=== PATIENT | female | born 1940 | race Caucasian/White ===

== ENCOUNTER 2018-12-06 09:02 | Inpatient (IN) ==
[2018-12-06] MEDS ORDERED: NS 1,000 ML IV ONE (09:15)
--- NOTE | 2018-12-06 09:24 | PROVIDER DOCUMENTATION ---
HPI-Neurological Disorder - General Chief Complaint: Altered Mental Status Stated Complaint: AMS Time Seen by Provider: 12/06/18 09:04 Source: patient, EMS Allergies/Adverse Reactions: Patient Allergies Allergy/AdvReac Type Severity Reaction Status Date / Time Penicillins Allergy Intermediate SWELLING Verified 07/29/15 15:40 aspirin AdvReac Severe GI BLEED Verified 07/29/15 15:40 morphine AdvReac Severe DECREASES Verified 07/29/15 15:40 BP Antihistamines - Alkylamine AdvReac Mild AGITAION Verified 07/29/15 15:40 levofloxacin [From Levaquin] AdvReac Mild HEADACHE Verified 07/29/15 15:40 meperidine HCl * AdvReac Mild HALLUCINATI Verified 07/29/15 15:40 [From Demerol] ONS quinine [Quinine] AdvReac Mild NAUSEA/VOMI Verified 07/29/15 15:40 TING Home Medications: Home Medication List Medication Instructions Recorded Confirmed Last Taken Type ATORVAstatin [Lipitor] 20 mg PO QHS 05/30/12 07/29/15 07/28/15 History Levothyroxine [Synthroid] 100 microgm PO DAILY 05/30/12 07/29/15 07/29/15 History Mirtazapine [Remeron] 30 mg PO QHS 05/30/12 07/29/15 07/28/15 History Venlafaxine E.r. [Effexor Xr] 75 mg PO BID 05/30/12 07/29/15 07/29/15 History Ziprasidone [Geodon] 20 mg PO DAILY 05/30/12 07/29/15 07/29/15 History Ziprasidone [Geodon] 40 mg PO QHS 05/30/12 07/29/15 07/28/15 History Estrogens, Conjugated [Premarin] 0.625 mg PO DAILY #0 01/29/13 07/29/15 07/29/15 Rx Gabapentin [Neurontin] 800 mg PO QHS 12/23/14 07/29/15 07/28/15 History Indapamide 1.25 mg PO DAILY 12/23/14 07/29/15 07/29/15 History Lorazepam [Ativan] 1 mg PO QHS 12/23/14 07/29/15 07/28/15 History Metoprolol Succinate [Toprol Xl] 200 mg PO DAILY 12/23/14 07/29/15 07/29/15 History Clindamycin [Cleocin] 150 mg PO Q6HR #30 capsule 07/29/15 Unknown Rx Furosemide [Lasix] 20 mg PO PRN PRN 07/29/15 07/29/15 Unknown History Omeprazole [Prilosec] 40 mg PO DAILY 07/29/15 07/29/15 07/29/15 History - History of Present Illness-Neuro Nature of Presenting Problem: EMS was called to the custodial [facility] to acute altered mental status. The nurse noted that the patient was not oriented and was acutely confused. By the time the EMS arrived she was back at baseline. Headache Location: denies: frontal, temporal, occipital, parietal, global, other Severity: reports: moderate Onset/Duration: reports: abrupt Timing: reports: resolved prior to arrival Context: reports: found unresponsive by custodial staff Approximate time patient was last seen normal?: 06:00 Character of Altered Mental Status: reports: disoriented, confused Any recent trauma/injury?: reports: none Character of Deficits: denies: new weakness, altered sensation, vision problem/glaucoma, impaired speech, impaired swallowing, decreased ability to stand, decreased ability to walk, falling New weakness or altered sensation location:: reports: none Cognitive Baseline: alert but confused Gait Baseline: unable to walk Associated Symptoms: denies: denies symptoms, short of breath, headache, decreased ability to walk or stand, fainting, dizziness, confusion, chest pain, neck/back pain, fatigue, fever/chills, insomnia, loss of consciousness, muscle spasms, nausea, numbness in legs/feet, paresthesia, diaphoretic, ringing in ears, seizures, sleepy, slurred speech, tingling in legs/feet, trouble walking, vomiting, vision changes, weakness, other Similar Symptoms Previously?: No Recently seen or treated by another doctor?: No Review of Systems - Adult - REVIEW OF SYSTEMS - ADULT Constitutional: reports: no symptoms reported Eyes: reports: no symptoms reported Ears, Nose, Mouth & Throat: reports: no symptoms reported Cardiovascular: reports: no symptoms reported Respiratory: reports: no symptoms reported Gastrointestinal: reports: no symptoms reported Genitourinary: reports: no symptoms reported Musculoskeletal: reports: joint pain Integumentary: reports: no symptoms reported Neurological: reports: see HPI Psychiatric: reports: anxiety, depression Endocrine: reports: no symptoms reported Hematologic/Lymphatic: reports: no symptoms reported Allergic/Immunologic: reports: no symptoms reported Past History - Adult - PAST MEDICAL HISTORY-ADULT Review of Records: reports: Old Records Reviewed, Nursing Assessment Review Major Childhood Illnesses: reports: denies history Cardiovascular: reports: CHF, HTN, hyperlipidemia Respiratory: reports: denies history Gastrointestinal: reports: GERD, ulcer Obstetrical/Gynecological: reports: denies history Genitourinary: reports: chronic UTI's Musculoskeletal: reports: arthritis, chronic pain, other (RA) Neurological: reports: other (neuropathy) Psychiatric: reports: depression Endocrine/Immune: reports: thyroid disorder Other Conditions: reports: denies history - PRIOR SURGERIES/PROCEDURES Surgical/Procedure History: reports: appendectomy, cholecystectomy, hysterectomy , tonsillectomy, other - IMMUNIZATION STATUS Childhood Immunizations: See Nurse Assessment Flu Vaccine: See Nurse Assessment - FAMILY HISTORY Family History: reviewed, not pertinent Physical Exam- Neurological - Physical Exam-Neuro Initial Vital Signs Reviewed: Yes General Appearance: appears well, alert, no apparent distress Eye Exam: bilateral eye: PERRL, EOMI HENMT: normocephalic/atraumatic, moist mucous membranes, normal ENT inspection, TMs normal, pharynx normal Head Injury: no evidence of injury Neck: non-tender, full range of motion, supple Respiratory: chest non-tender, lungs clear, normal breath sounds Cardiovascular: normal peripheral pulses, regular rate, rhythm, no edema Abdominal Exam: normal bowel sounds, non tender, soft, no organomegaly, no pulsatile mass Peripheral Pulses: radial (R): 1+, radial (L): 1+ Extremity: other (deformaties to hands from arthritis. left foot and ankle is deformed from previous surgery. 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 negative: normal gait Motor/Sensory: no motor deficit, no sensory deficit, no pronator drift Neurologic: code and test clerk II-XII nml as tested Integumentary: normal color, normal turgor Psych/Mental Status: normal mood/affect, normal thought content, other (Patient knows age and year. Not oriented to month or place.) - Glascow Coma Scale Best Eye Response: (4) open spontaneously Best Verbal Response: (5) oriented Best Motor Response: (6) obeys commands Progress - PLAN OF CARE/RESULTS Progress/Plan/Lab Results: Vital Signs - 8 hr 12/06/18 09:05 Temperature 97.5 F L Pulse Rate 70 Respiratory Rate 18 Blood Pressure 136/111 O2 Sat by Pulse Oximetry 100 Laboratory Results - last 24 hr 12/06/18 12/06/18 12/06/18 10:34 10:34 10:34 WBC 18.70 H RBC 3.59 L Hgb 11.3 L Hct 35.8 L MCV 99.7 H MCH 31.5 H MCHC 31.6 L RDW Std Deviation 12.6 Plt Count 275 MPV 9.3 Immature Gran % (Auto) 0.3 Neut % (Auto) 70.8 Lymph % (Auto) 16.0 L [place] % (Auto) 9.8 H Eos % (Auto) 2.9 Baso % (Auto) 0.2 Immature Gran # (Auto) 0.05 H Neut # (Auto) 13.25 H Lymph # (Auto) 2.99 [place] # (Auto) 1.84 H Eos # (Auto) 0.54 Baso # (Auto) 0.03 Sodium 141 Potassium 5.4 H Chloride 94 L Carbon Dioxide 33 Anion Gap 14 BUN 43 H Creatinine 2.4 H Estimated GFR/1.73 m2 19 BUN/Creatinine Ratio 18 Glucose 102 Calculated Osmolality 292 Calcium 11.9 H Total Bilirubin 0.28 AST 33 H ALT 12 Alkaline Phosphatase 74 Creatine Kinase 60 Troponin T 0.063 Total Protein 7.3 Albumin 4.1 Globulin 3.2 Albumin/Globulin Ratio 1.3 Urine Source Urine Color Urine Turbidity Urine pH Ur Specific [place] Urine Protein Ur Glucose (Stick) Ur Ketones (Stick) Urine Blood Urine Nitrite Urine Bilirubin Urobilinogen Dipstick Urine Leukocytes Urine WBC (Auto) Urine RBC (Auto) U Epithel Cells (Auto) Urine Bacteria (Auto) 12/06/18 10:55 WBC RBC Hgb Hct MCV MCH MCHC RDW Std Deviation Plt Count MPV Immature Gran % (Auto) Neut % (Auto) Lymph % (Auto) [place] % (Auto) Eos % (Auto) Baso % (Auto) Immature Gran # (Auto) Neut # (Auto) Lymph # (Auto) [place] # (Auto) Eos # (Auto) Baso # (Auto) Sodium Potassium Chloride Carbon Dioxide Anion Gap BUN Creatinine Estimated GFR/1.73 m2 BUN/Creatinine Ratio Glucose Calculated Osmolality Calcium Total Bilirubin AST ALT Alkaline Phosphatase Creatine Kinase Troponin T Total Protein Albumin Globulin Albumin/Globulin Ratio Urine Source CATH Urine Color YELLOW Urine Turbidity CLEAR Urine pH 7.0 Ur Specific [place] 1.011 Urine Protein TRACE A Ur Glucose (Stick) NEGATIVE Ur Ketones (Stick) NEGATIVE Urine Blood NEGATIVE Urine Nitrite NEGATIVE Urine Bilirubin NEGATIVE Urobilinogen Dipstick NORMAL Urine Leukocytes MODERATE A Urine WBC (Auto) 10-20 A Urine RBC (Auto) <10 U Epithel Cells (Auto) <10 Urine Bacteria (Auto) NEGATIVE Orders Category Date Time Status CHEST-2 VIEWS [RAD] Stat Exams 12/06/18 09:[address] HEAD W/O CONTRAST [CT] Stat Exams 12/06/18 09:14 Completed CBC WITH ELECTRONIC DIFF [HEME] Stat Lab 12/06/18 10:34 Completed CK PROFILE [SP CHEM] Stat Lab 12/06/18 10:34 Completed COMPREHENSIVE METABOLIC PANEL [CHEM] Stat Lab 12/06/18 10:34 Completed LACTATE, PLASMA [CHEM] Stat Lab 12/06/18 12:08 Uncollected TROPONIN T Stat Lab 12/06/18 10:34 Completed UA NIMS W/REFLEX CULT [URINALYSIS] Stat Lab 12/06/18 10:55 Completed 0.9% Sodium Chloride Inj [Ns] 1,000 ml Med 12/06/18 09:15 Discontinued IV 500 mls/hr Result Diagrams: 12/06/18 10:34 12/06/18 10:34 - CONSULTS/PCP/HOSPITALIST Notification #1 *Consult/PCP/Hospitalist*: Bhumi Time Discussed: 12:13 (Admit to Dr Chanel) Departure - Departure Date of Disposition Decision: 12/06/18 Time of Disposition Decision: 12:12 DIAGNOSIS: Pneumonia Disposition: ADMITTED INPATIENT 09 Certified Medical Emergency: Emergent Condition: Stable Referrals and Follow-Ups: Izabel Soto MD [Primary Care Provider] - - Critical Care Note This patient required my direct & personal management of CC.: No Attestation - Physician/ DELMAR Attestation Patient care was provided by Advanced Practice Provider:: No The physician spent face to face time with patient:: Yes Advanced Practice Provider documentation review:: Supervising physician onsite and consulted in the evaluation and care of this patient. The physician did have a face to face encounter with the patient.
--- NOTE | 2018-12-06 09:50 | Diag Imaging Result Doc PS360 ---
EXAM: CT HEAD W/O CONTRAST HISTORY: altered mental status TECHNIQUE: CT head without contrast COMPARISON: 01/07/2014 FINDINGS: No parenchymal hemorrhage. No epidural or subdural hematoma. No subarachnoid hemorrhage. There is atrophy with chronic microvascular ischemic changes. No mass identified on this noncontrasted exam. No hydrocephalus. No sinus opacification. IMPRESSION: 1.No hemorrhage 2.Atrophy with chronic microvascular ischemic changes This exam was performed using automated exposure control, adjustment of mA or kV according to patient size, and/or use of iterative reconstruction technique. Electronically signed by Huey Salter 12/06/2018 9:48 AM
--- NOTE | 2018-12-06 09:52 | Diag Imaging Result Doc PS360 ---
EXAM: CHEST-2 VIEWS HISTORY: altered mental status TECHNIQUE: Chest two views COMPARISON: 11/23/2015 FINDINGS: The lungs are well expanded. The left hemidiaphragm is elevated. The heart is not enlarged. The vessels are not distended. Questionable tiny left basilar infiltrate. No consolidation. No pleural effusions. IMPRESSION: Left basilar atelectasis versus a tiny infiltrate Electronically signed by Huey Salter 12/06/2018 9:50 AM
[2018-12-06 10:51] LABS: BASO# 0.03 X1000 (0.0-0.2); BASO% 0.2 % (0.0-0.8); EOS# 0.54 X1000 (0.0-0.7); EOS% 2.9 % (0.0-10.0); HEMATOCRIT 35.8 % (37.0-47.0); HEMOGLOBIN 11.3 g/dL (12.0-16.0); IMM GRAN# 0.05 X1000 (0.0-0.04); IMM GRAN% 0.3 % (0.0-0.5); LYMPH# 2.99 X1000 (1.2-3.4); MCH 31.5 PG (27-31); MCHC 31.6 g/dL (33-37); MCV 99.7 FL (81-99); MONO# 1.84 X1000 (0.11-0.59); MONO% 9.8 % (1.7-9.3); MPV 9.3 FL (7.4-10.4); NEUT# 13.25 X1000 (1.4-6.5); NEUT% 70.8 % (42.2-75.2); PLT 275 X1000 (130-400); RBC 3.59 XMIL (4.2-5.4); RDW 12.6 % (11.5-14.5)
[2018-12-06 11:09] LABS: ALB/GLOB RATIO 1.3; ALBUMIN 4.1 g/dL (3.5-5.0); CALCIUM 11.9 mg/dL (8.8-10.2); CREATININE 2.4 mg/dL (0.5-0.9); POTASSIUM 5.4 mmol/L (3.5-5.1); TOTAL BILIRUBIN 0.28 mg/dL (0.20-1.00); TOTAL PROTEIN 7.3 g/dL (6.3-8.3)
[2018-12-06 11:43] LABS: URINE SOURCE CATH
[2018-12-06 11:51] LABS: BILIRUBIN URINE NEGATIVE (NEGATIVE); BLOOD URINE NEGATIVE (NEGATIVE); COLOR YELLOW; GLUCOSE URINE NEGATIVE (NEGATIVE); KETONE URINE NEGATIVE (NEGATIVE); LEUKOCYTES URINE MODERATE (NEGATIVE); NITRITE URINE NEGATIVE (NEGATIVE); PROTEIN URINE TRACE mg/dL (NEGATIVE); SP GRAVITY URINE 1.011; TURBIDITY URINE CLEAR (CLEAR); UROBILINOGEN URINE NORMAL (NORMAL)
[2018-12-06 11:52] LABS: UR EPITHELIAL CELLS <10 /HPF (<10); URINE BACTERIA NEGATIVE /HPF; URINE RBC <10 /HPF (<10)
--- NOTE | 2018-12-06 12:12 | ED EKG INTERP ---
This chart was entered by Jacqueline Alejandre Scribe, acting as scribe for Rodney Leal DO. EKG Interpretation - EKG Time of EKG reading by physician:: 09:59 EKG Read and Signed by:: Rodney Leal EKG Interpretation (*Must complete 3 of following elements*): Abnormal (inferior infarct, age undetermined) Rate: 80 Rhythm: undetermined rhythm QRS: LVH ( with QRS widening) ST Wave: normal Attestation - Physician/ DELMAR Attestation Patient care was provided by Advanced Practice Provider:: No The physician spent face to face time with patient:: Yes Advanced Practice Provider documentation review:: Supervising physician onsite and consulted in the evaluation and care of this patient. The physician did have a face to face encounter with the patient. This chart was documented by the indicated scribe, (Jacqueline Alejandre Scribe) and accurately reflects the services I performed and decisions made by , Rodney Leal DO, as attested by the provider's signature.
[2018-12-06] MEDS ORDERED: TYLENOL PO PRN (13:29)
[2018-12-06] MEDS ORDERED: NS 1,000 ML IV SCH (13:29)
[2018-12-06] MEDS ORDERED: ANTIVERT PO PRN (15:36)
[2018-12-06] MEDS: DUONEB (A & A) INH SCH ×3 (16:42→23:05)
[2018-12-06] MEDS: NS 500 ML IV SCH (16:51)
[2018-12-06] MEDS: VELTASSA PO SCH (16:51)
[2018-12-06] MEDS: ZITHROMAX 500 MG/NS 500 MG/250 ML IVPB IV SCH (16:51)
[2018-12-06] MEDS: ROCEPHIN 1 GM in NS 50 ML IV SCH (16:51)
[2018-12-06] MEDS: NORCO-7.5 PO PRN (16:53)
[2018-12-06] MEDS ORDERED: NORCO-7.5 PO SCH (17:00)
--- NOTE | 2018-12-06 19:04 | HISTORY AND PHYSICAL ---
PRIMARY CARE PHYSICIAN: Izabel Soto MD CHIEF COMPLAINT: From shelter staff, increased confusion over the past several days that has progressively worsened. HISTORY OF PRESENTING ILLNESS: This is a 78-year-old female who presents to [facility] via EMS, who state that the shelter felt that she had increased acute altered mental status, was not oriented, acutely confused, but by the time EMS arrived, she was back at baseline. The patient states she has had confusion, and is alert and oriented at this time. When she arrived, her O2 saturation was 100% on 3 L. Her laboratory data showed a white blood cell count of 18.70. Her BUN was 43 with a creatinine of 2.4. Review of old records shows that her baseline is anywhere between 1.3 to 1.8. Her urinalysis showed moderate leukocytes only. Her chest x-ray showed left basilar atelectasis versus a tiny infiltrate. Head CT showed no hemorrhage, atrophy and chronic microvascular ischemic changes. She will be admitted to the medical floor for further evaluation and treatment. PAST MEDICAL HISTORY: CHF, hypertension, hyperlipidemia, GERD, chronic UTIs, arthritis, chronic kidney disease, rheumatoid arthritis, neuropathy, depression, hypothyroidism. PAST SURGICAL HISTORY: Appendectomy, cholecystectomy, hysterectomy, tonsillectomy. FAMILY HISTORY: Reviewed and noncontributory. SOCIAL HISTORY: She currently resides at a local shelter. Denies any tobacco, alcohol or illicit drug use. ALLERGIES: Penicillin, aspirin, morphine, antihistamines, Levaquin, meperidine and quinine. HOME MEDICATIONS: We will hold her Lasix 20 mg p.o. daily and Zofran 4 mg p.o. q.6 hours p.r.n. We will continue her acetaminophen extra-strength 500 mg 1 p.o. q.8 hours p.r.n.; Lipitor 20 mg p.o. at bedtime; vitamin B12, 1000 mcg p.o. daily; famotidine 10 mg p.o. b.i.d.; TriCor 48 mg 2 tablets p.o. at bedtime; Neurontin 600 mg p.o. at bedtime; [place] 10 one p.o. at bedtime and 7.5 p.o. t.i.d.; indapamide 1.25 mg p.o. daily; Synthroid 125 mcg p.o. daily; Ativan 1 mg 1-1/2 tablets p.o. at bedtime; Mylanta 15 mL p.o. at bedtime; meclizine 25 mg p.o. b.i.d.; melatonin 1 mg p.o. daily; metoprolol 200 mg p.o. daily; multivitamin p.o. daily; Veltassa 8.4 mg p.o. as directed, which was daily 6 days a week; Zantac 150 mg p.o. b.i.d.; senna-S 1 p.o. b.i.d.; Effexor XR 75 mg p.o. b.i.d.; ziprasidone 20 mg p.o. daily. LABORATORY DATA: White blood cell count of 18.70, hemoglobin 11.3, hematocrit 35.8, platelets 275,000. Sodium 141, potassium 5.4, chloride 94, CO2 is 33, BUN of 43, creatinine 2.4, glucose 102. Cardiac enzyme was negative. Urinalysis was negative except for moderate leukocyte. DIAGNOSTIC DATA: Chest x-ray showed left basilar atelectasis versus a tiny infiltrate. Head CT showed no hemorrhage, and atrophy with chronic microvascular ischemic changes. EKG showed an undetermined rhythm at 80, and I do not have the image of that at this time so we will go back and review that EKG. REVIEW OF SYSTEMS: She denied any fever, chills, blurred vision or dizziness. She was positive for confusion. Denied any chest pain, coughing. She has had some mild shortness of breath. Denied any abdominal pain, constipation, diarrhea or burning or hurting with urination. PHYSICAL EXAMINATION: VITAL SIGNS: On arrival she had a temperature of 97.5 degrees, pulse 70, respirations 18, blood pressure 136/111, saturating 100% on 3 L via nasal cannula. GENERAL: This is a 78-year-old female who is lying in the bed, answers questions appropriately at this time. HEENT: Normocephalic, atraumatic. Normal ENT inspection. Oropharynx and nares are clear. Eyes: Pupils are equal, round and reactive to light and accommodation. Extraocular movements are intact. NECK: Normal inspection, normal range of motion. LUNGS: Some scattered wheezes in the bases bilaterally. Equal lung expansion. Chest wall movement noted. HEART: Regular rate and rhythm. No murmurs, rubs or gallops. ABDOMEN: Soft, nontender, nondistended. Bowel sounds are present x4 quadrants. MUSCULOSKELETAL: She is noted to have some deformities of her hands from arthritis. Her left foot and ankle is deformed from a previous surgery and is noted to have 3 toes missing. NEUROLOGICAL: The cranial nerves 2-12 appear grossly intact. ASSESSMENT: 1. Altered mental status, now appears resolved: Contributers could include uremia due to WES, Pneumonia, use of sedative medications. 2. Left lower lobe pneumonia. 3. Leukocytosis. 4. Acute kidney injury on chronic kidney disease. PLAN: She is being admitted to the medical unit, placed on O2 per protocol, incentive spirometry. Telemetry, healthy-heart diet. Continue her home medications as previously identified. Place on DuoNeb q.4 hours, Rocephin 1 g IV q.24, azithromycin 500 IV q.24. Normal saline; we will do a 500 mL bag at 50 mL/h. She did receive a 500 mL bolus in the emergency room. We will recheck a CBC, BMP. Urine culture is pending. I will order a set of blood cultures. Further orders after seen by attending. Dictated by EDY Hernandez for Atif Chanel MD cc: EDY Hernandez MD Hiteshri S. Bhavsar, MD I agree with most components of history, physical, assessment and plan. A separate addendum has been dictated. [facility] MEDICAL CENTERZach
[2018-12-06 19:12] LABS: CALCIUM 10.9 mg/dL (8.8-10.2); CREATININE 2.4 mg/dL (0.5-0.9); POTASSIUM 4.2 mmol/L (3.5-5.1)
--- NOTE | 2018-12-06 20:15 | HISTORY AND PHYSICAL ---
ADDENDUM: I agree with most components of history, physical, assessment and plan. In brief, Ms. Vallejo is 78 years old lady with past medical history of essential hypertension, hyperlipidemia, obesity, rheumatoid arthritis, chronic kidney disease stage 3, anxiety, hypothyroidism, chronic pain, who was sent from jail because of altered mental status and acute confusion. According to ER records, by the time EMS arrived patient was very close to the baseline. In the emergency room she was found to have acute kidney injury on chronic kidney disease stage 3, leukocytosis, hypercalcemia and so hospitalist team was consulted for further management. I saw patient when 2 of her daughters are at bedside. Currently patient appears alert. The patient has been complaining of some chest discomfort and cough recently. She was able to make some sputum. However it was not collected. The patient has also been complaining of burning micturition recently. She denies any shortness of breath though. She denies known history of clotting disorder or coronary artery disease. Her initial troponin was slightly elevated to 0.06. We discussed about exam findings. We also discussed about possible pneumonia and urinary tract infection, hypercalcemia with medications contributing to altered mental status. VITALS: She has been afebrile with temperature of 97.9 degrees, pulse of 82 per minute, respiratory 20 blood pressure 150/96, saturating 99% on 2 L nasal cannula. PHYSICAL EXAMINATION: Morbidly obese not in any acute distress. Oral cavity is moist. She has decreased air entry with inspiratory crackles bilateral infrascapular region. Decreased air entry is more pronounced on left. She probably also has hiatal hernia. CARDIOVASCULAR: S1, S2 normal. No murmur, rub, or gallop. ABDOMEN: Obese, soft, nontender. No hepatosplenomegaly. She has mild bilateral lower extremity edema. She is alert and oriented x3. She is able to lift both upper extremities above ground level. She is not able to lift both lower extremities above ground level. However she is able to wiggle her toes. She has marked deformity of bilateral feet and what appears to be Dupuytren contracture of right hand. LABS: Suggestive of leukocytosis, normocytic anemia, normal platelet count, hyperkalemia, hypochloremia, acute kidney injury on chronic kidney disease stage 3, hypercalcemia, pyuria. Her urine and urine culture is in lab. Blood culture is pending. ASSESSMENT AND PLAN: 1. Acute encephalopathy in the setting of left lower lobe pneumonia, suspected acute cystitis, acute kidney injury and hypercalcemia. 2. Acute kidney injury on chronic kidney disease stage 3 with mild hyperkalemia and due to likely use of Lasix as per jail records. 3. Hypercalcemia likely because of volume depletion due to Lasix use. 4. Chronic pain, anxiety and depression with use of multiple sedative hypnotic medications including gabapentin, [place], benzodiazepines and ziprasidone. 5. Hypothyroidism. PLAN: 1. Start patient on intravenous ceftriaxone, azithromycin. Follow up with sputum culture, blood culture, urine culture results and urinary antigen. 2. Hold sedative hypnotic medications and add back as tolerated. 3. Follow up with serial BMP and avoid nephrotoxic medications. 4. Disposition. I will continue to monitor patient inside hospital as we monitor her mental status recovery as well as electrolyte recovery. Plan of care discussed with 2 of the daughters at bedside. All of the questions have been answered. cc: Atif Chanel MD
[2018-12-06] MEDS ORDERED: NEURONTIN PO SCH (21:00)
[2018-12-06] MEDS ORDERED: ATIVAN PO SCH (21:00)
[2018-12-06] MEDS ORDERED: ANTIVERT PO SCH (21:00)
[2018-12-06] MEDS ORDERED: NORCO-10 PO SCH (21:00)
[2018-12-06] MEDS: PEPCID PO SCH (22:09)
[2018-12-06] MEDS: TRICOR PO SCH (22:10)
[2018-12-06] MEDS: ZANTAC PO SCH (22:10)
[2018-12-06] MEDS: LIPITOR PO SCH (22:11)
[2018-12-06] MEDS: PERICOLACE PO SCH (22:11)
[2018-12-06] MEDS: EFFEXOR XR PO SCH (22:11)
[2018-12-06] MEDS: MELATONIN PO SCH (22:12)
[2018-12-06] MEDS: TYLENOL PO PRN (22:12)
[2018-12-06] MEDS: MAALOX PLUS LIQUID PO SCH (22:26)
[2018-12-07] MEDS: DUONEB (A & A) INH SCH ×6 (03:11→23:25)
[2018-12-07] MEDS: NS 500 ML IV SCH (04:27)
[2018-12-07] MEDS: NORCO-7.5 PO PRN (05:06)
[2018-12-07] MEDS: SYNTHROID PO SCH (06:09)
[2018-12-07 06:42] LABS: BASO# 0.02 X1000 (0.0-0.2); BASO% 0.2 % (0.0-0.8); EOS# 0.49 X1000 (0.0-0.7); HEMATOCRIT 31.8 % (37.0-47.0); HEMOGLOBIN 9.7 g/dL (12.0-16.0); IMM GRAN# 0.03 X1000 (0.0-0.04); IMM GRAN% 0.2 % (0.0-0.5); LYMPH# 1.77 X1000 (1.2-3.4); LYMPH% 14.6 % (20.5-51.1); MCH 30.4 PG (27-31); MCHC 30.5 g/dL (33-37); MCV 99.7 FL (81-99); MONO# 1.28 X1000 (0.11-0.59); MONO% 10.5 % (1.7-9.3); MPV 9.2 FL (7.4-10.4); NEUT# 8.56 X1000 (1.4-6.5); NEUT% 70.5 % (42.2-75.2); PLT 263 X1000 (130-400); RBC 3.19 XMIL (4.2-5.4); RDW 12.5 % (11.5-14.5); WBC 12.15 X1000 (4.8-10.8)
[2018-12-07 07:22] LABS: CALCIUM 10.5 mg/dL (8.8-10.2); CREATININE 2.2 mg/dL (0.5-0.9); POTASSIUM 3.5 mmol/L (3.5-5.1)
[2018-12-07] MEDS ORDERED: GEODON PO SCH (09:00)
[2018-12-07] MEDS ORDERED: LOZOL PO SCH (09:00)
[2018-12-07] MEDS: TOPROL XL PO SCH (09:01)
[2018-12-07] MEDS: PERICOLACE PO SCH ×2 (09:02→20:21)
[2018-12-07] MEDS: PEPCID PO SCH ×2 (09:02→20:22)
[2018-12-07] MEDS: ZANTAC PO SCH ×2 (09:02→20:21)
[2018-12-07] MEDS: EFFEXOR XR PO SCH ×2 (09:02→20:21)
[2018-12-07] MEDS: VITAMIN B-12 PO SCH (09:02)
[2018-12-07] MEDS: THERA M PLUS PO SCH (09:02)
--- NOTE | 2018-12-07 12:13 | PROGRESS NOTE ---
DATE: 12/07/2018 SUBJECTIVE: The patient has no current complaints. She states that she is feeling a little bit better, but she is still having some cough and congestion. Now says she feels like she cannot get the congestion up sometimes. OBJECTIVE: vital signs: Temperature 98 degrees, pulse 82, respiratory 18, BP 153/85. General: The patient is an obese female who is currently in no respiratory distress. Pleasant to talk with. HEENT: Normocephalic. Neck: Supple. Cardiovascular: Regular rate. Chest: No current wheezing. No crackles. Decreased but equal air movement. Abdomen: Soft, nondistended. Extremities: Moves all extremities. ASSESSMENT: 1. Left lower lobe pneumonia. 2. Metabolic encephalopathy, appears resolved, secondary to pneumonia. 3. Leukocytosis, improved. White count is 12. 4. Chronic renal failure with acute changes. Appears to be improving. PLAN: Overall, the patient is better. We will continue antibiotics, oxygen, and resuscitation. We will follow. cc: Ady Barron MD
[2018-12-07] MEDS: ROCEPHIN 1 GM in NS 50 ML IV SCH (13:18)
[2018-12-07] MEDS ORDERED: APRESOLINE PO ONE (17:20)
[2018-12-07] MEDS: ZITHROMAX 500 MG/NS 500 MG/250 ML IVPB IV SCH (18:49)
[2018-12-07] MEDS: LIPITOR PO SCH (20:21)
[2018-12-07] MEDS: TRICOR PO SCH (20:21)
[2018-12-07] MEDS: MELATONIN PO SCH (20:22)
[2018-12-07] MEDS: ATIVAN PO SCH (20:22)
[2018-12-07] MEDS: APRESOLINE PO SCH (20:22)
[2018-12-07] MEDS: MAALOX PLUS LIQUID PO SCH (20:31)
[2018-12-08] MEDS: NS 500 ML IV SCH ×3 (00:54→12:27)
[2018-12-08] MEDS: DUONEB (A & A) INH SCH ×6 (03:41→23:30)
[2018-12-08] MEDS: TYLENOL PO PRN (03:46)
[2018-12-08] MEDS: NORCO-7.5 PO PRN ×2 (05:12→20:53)
[2018-12-08] MEDS: SYNTHROID PO SCH (07:00)
--- NOTE | 2018-12-08 07:26 | EKG Report ---
Test Performed on : 12/07/2018 06:36:31 AM Test Reason : Follow up rhythm. ? Sinus with PAC Blood Pressure : / mmHG Vent. Rate : 076 BPM Atrial Rate : 076 BPM P-R Int : 198 ms QRS Dur : 116 ms QT Int : 430 ms P-R-T Axes : 060 -09 000 degrees QTc Int : 483 ms Normal sinus rhythm. Left ventricular hypertrophy with QRS widening Cannot rule out Inferior infarct (cited on or before 27-OCT-2013) Abnormal ECG When compared with ECG of 06-DEC-2018 09:59, (Unconfirmed) Previous ECG has undetermined rhythm, needs review Confirmed by Jag RAMOS, Juan Laura ([id number]) on 12/08/2018 5:05:53 PM
--- NOTE | 2018-12-08 07:46 | EKG Report ---
Test Performed on : 12/06/2018 09:59:15 AM Test Reason : ED. NO EKG ORDER FOR MUSE Blood Pressure : / mmHG Vent. Rate : 080 BPM Atrial Rate : 102 BPM P-R Int : 134 ms QRS Dur : 116 ms QT Int : 390 ms P-R-T Axes : 268 -13 032 degrees QTc Int : 449 ms Undetermined rhythm Left ventricular hypertrophy with QRS widening Inferior infarct (cited on or before 27-OCT-2013) Abnormal ECG When compared with ECG of 24-DEC-2014 05:43, Current undetermined rhythm precludes rhythm comparison, needs review Serial changes of Inferior infarct present Unconfirmed Result
[2018-12-08] MEDS: VITAMIN B-12 PO SCH (09:08)
[2018-12-08] MEDS: PERICOLACE PO SCH ×2 (09:08→20:48)
[2018-12-08] MEDS: THERA M PLUS PO SCH (09:09)
[2018-12-08] MEDS: ZANTAC PO SCH ×2 (09:09→20:48)
[2018-12-08] MEDS: PEPCID PO SCH ×2 (09:09→20:48)
[2018-12-08] MEDS: EFFEXOR XR PO SCH ×2 (09:09→20:48)
[2018-12-08] MEDS: APRESOLINE PO SCH ×2 (09:10→20:48)
[2018-12-08] MEDS: TOPROL XL PO SCH (09:10)
[2018-12-08] MEDS: ROCEPHIN 1 GM in NS 50 ML IV SCH (12:42)
[2018-12-08] MEDS: VELTASSA PO SCH (13:25)
[2018-12-08] MEDS ORDERED: NORCO-7.5 PO ONE (13:25)
--- NOTE | 2018-12-08 13:52 | PROGRESS NOTE ---
DATE: 12/08/2018 PHYSICAL EXAMINATION: Cardiovascular: Regular rate and rhythm. Pulmonary: Bilateral breath sounds. Clear to auscultation. GI: Soft, nontender, and nondistended. Bowel sounds were positive. LABORATORY DATA: White count is 12, hemoglobin and hematocrit 9 and 31; these are labs from yesterday. PROBLEM LIST: 1. Left lower lobe pneumonia. She appears to be improving. We will continue empiric antibiotics and follow. I am going to repeat her chest x-ray and her white count. 2. Hypertension. We will continue regular medications. Monitor. 3. Chronic renal failure appears to be overall stable. I am going to stop her fluids because I do not think we need to volume overload her. DISPOSITION: Anticipate discharge soon hopefully in the next 24 hours. I think she is in the long-term facility. cc: Chico Becker MD
[2018-12-08] MEDS: ZITHROMAX 500 MG/NS 500 MG/250 ML IVPB IV SCH (17:21)
[2018-12-08] MEDS: LIPITOR PO SCH (20:47)
[2018-12-08] MEDS: TRICOR PO SCH (20:48)
[2018-12-08] MEDS: MAALOX PLUS LIQUID PO SCH (20:49)
[2018-12-08] MEDS: ATIVAN PO SCH (20:52)
[2018-12-08] MEDS: MELATONIN PO SCH (20:57)
[2018-12-09] MEDS: DUONEB (A & A) INH SCH ×5 (03:05→19:59)
[2018-12-09] MEDS: NORCO-7.5 PO PRN ×3 (03:16→15:36)
[2018-12-09] MEDS: SYNTHROID PO SCH (06:11)
[2018-12-09 07:35] LABS: BASO# 0.02 X1000 (0.0-0.2); BASO% 0.2 % (0.0-0.8); EOS# 0.77 X1000 (0.0-0.7); EOS% 6.7 % (0.0-10.0); HEMATOCRIT 31.6 % (37.0-47.0); HEMOGLOBIN 9.8 g/dL (12.0-16.0); IMM GRAN# 0.04 X1000 (0.0-0.04); IMM GRAN% 0.4 % (0.0-0.5); LYMPH# 2.21 X1000 (1.2-3.4); LYMPH% 19.4 % (20.5-51.1); MCH 30.5 PG (27-31); MCV 98.4 FL (81-99); MONO# 1.38 X1000 (0.11-0.59); MONO% 12.1 % (1.7-9.3); MPV 9.4 FL (7.4-10.4); NEUT# 6.99 X1000 (1.4-6.5); NEUT% 61.2 % (42.2-75.2); PLT 329 X1000 (130-400); RBC 3.21 XMIL (4.2-5.4); RDW 12.4 % (11.5-14.5); WBC 11.41 X1000 (4.8-10.8)
--- NOTE | 2018-12-09 07:47 | Diag Imaging Result Doc PS360 ---
CHEST-PORTABLE - 12/09/2018 INDICATION: dyspnea COMPARISON: 12/06/2018 FINDINGS: Lung volumes are much lower. Stable infiltrate or atelectasis in the left lung base. Heart size remains top normal. No pneumothorax or large pleural effusion. IMPRESSION: Lower lung volumes. Otherwise no change from prior. Electronically signed by Boaz Harper 12/09/2018 7:44 AM
[2018-12-09 07:53] LABS: CREATININE 1.5 mg/dL (0.5-0.9); POTASSIUM 3.8 mmol/L (3.5-5.1)
[2018-12-09] MEDS: ZANTAC PO SCH (09:25)
[2018-12-09] MEDS: PERICOLACE PO SCH (09:25)
[2018-12-09] MEDS: PEPCID PO SCH (09:25)
[2018-12-09] MEDS: APRESOLINE PO SCH (09:25)
[2018-12-09] MEDS: VITAMIN B-12 PO SCH (09:26)
[2018-12-09] MEDS: THERA M PLUS PO SCH (09:26)
[2018-12-09] MEDS: EFFEXOR XR PO SCH (09:26)
[2018-12-09] MEDS: TOPROL XL PO SCH (09:26)
--- NOTE | 2018-12-09 13:17 | DISCHARGE SUMMARY ---
ADMISSION DATE: 12/06/2018 DISCHARGE DATE: 12/09/2018 DISCHARGE DIAGNOSES: 1. Left lower lobe pneumonia. 2. Hypoxic respiratory failure. 3. Acute on chronic renal failure. 4. Hypertension. 5. Gastroesophageal reflux disease. 6. Dementia. 7. Hyperkalemia. CONSULTATIONS: None. PROCEDURES: None. HOSPITAL COURSE: Briefly, this is a 78-year-old female presenting with increasing confusion. She is a long-term resident at [facility]. Her initial saturations were 100% on 3 L. I think she is continuously on oxygen. Her white count was 18. Her creatinine was 2.4. Chest x- ray was read as a left lower lobe pneumonia. Technically, I would say she was institutional acquired. She was placed on Rocephin and azithromycin which she improved on. Her encephalopathy improved. There was concern over cystitis. Her urine had some white blood cells and it grew out Enterococcus. She is allergic to penicillin, so I have to adjust her antibiotics, and she is allergic to Levaquin which causes headache. Her micro on the Klebsiella grew out on her sputum and it was pretty sensitive so for her Enterococcus, I think we will do Zyvox 600 q.12 h. and for her Klebsiella, we did Omnicef which should be good enough, but I think we may need to switch her to Keflex, Keflex and Zyvox, and see how she does with those 2 medications. In any case, the patient slowly improved. She still had a persistent mild leukocytosis which I think that resolved prior to discharge or nearly 11.4 on 12/09/2018. Her creatinine interestingly after hydration went to 1.54. As I can tell she has some baseline insufficiency. Her level is anywhere from 1.5 to 2 so that is not a large variance, but she was breathing comfortably. Her chest x-ray showed some low lung volumes but no major effusion. Saturations were 96% to 100% on 3 L which I think is her usual level, so she was felt stable for discharge. DISCHARGE MEDICATIONS: Gering, she takes 10 at night. Lipitor 20 at bedtime, Maalox 15 at bedtime, Neurontin 600 at bedtime, Tricor 96 at bedtime, Tylenol p.r.n., Pepcid 10 b.i.d., Antivert 25 b.i.d., Effexor 75 b.i.d., Geodon 20 daily. Gering she takes 1 tablet t.i.d. and that is a 7.5. I gave prescription for that. Indapamide 1.25 daily, Lasix 20 daily, melatonin 1 daily, senna 1 b.i.d., Synthroid 125 daily, multivitamin 1 daily, Toprol 200 daily XL, Veltassa 8.4 daily, vitamin B12 1 mcg daily, Zantac 150 b.i.d. Zofran 4 q.6 h. hours p.r.n. pain, Ativan 1 daily. Her DuoNebs will be q.6 h. for 7 days and then daily and then her Keflex will be 500 t.i.d. for 7 days and Zyvox 600 b.i.d. for 7 days. TIME SPENT: 32 minutes. cc: Chico Becker MD
[2018-12-09] MEDS: VELTASSA PO SCH (14:05)
[2018-12-09] MEDS: ROCEPHIN 1 GM in NS 50 ML IV SCH (14:05)
[2018-12-09 16:45] VITALS: BP 152/96
[2018-12-09] MEDS: ZITHROMAX 500 MG/NS 500 MG/250 ML IVPB IV SCH (17:44)
== END 2018-12-09 21:00 | DRG 871 ==
LOC: SUPCPDRO → ED 09:02 → SUATTDRO 12:59 → 3N 12:59
PROVIDERS: ATTEND Internal Medicine
CPT/HCPCS: 51701; 70450; 71010; 71020; 71045; 71046; 80048; 80053; 81001; 82550; 82948; 83605; 84484; 85025; 87040; 87070; 87077; 87088; 87186; 87205; 93005; 93010; 94640; 94761; 94799; 96360; 96361; 99285; A9270; J0456; J0696; J7030; J7040; P9612; XXXXX

== ENCOUNTER 2019-06-20 09:22 | Inpatient (IN) ==
--- NOTE | 2019-06-20 09:57 | Diag Imaging Result Doc PS360 ---
EXAM: CT HEAD W/O CONTRAST 06/20/2019 HISTORY: AMS TECHNIQUE: This exam was performed using automated exposure control, adjustment of mA or kV according to patient size, and/or use of iterative reconstruction technique. COMMENT: There are calcifications in the vertebral and internal carotid arteries. There are patchy lucencies in the periventricular white matter of both hemispheres. The patient's head is tilted and rotated to the left. Compared to 12/06/2018 the appearance the brain has not changed significantly. There is no evidence of mass effect, bleed, or abnormal extra-axial fluid collection. The visualized paranasal sinuses are clear. The calvarium is intact. IMPRESSION: Chronic ischemic changes. No evidence of acute intracranial disease. Electronically signed by Sunny Deras 06/20/2019 9:55 AM
[2019-06-20] MEDS ORDERED: D50W SYRINGE ONE (10:03)
[2019-06-20] MEDS ORDERED: NARCAN ONE (10:04)
--- NOTE | 2019-06-20 10:09 | PROVIDER DOCUMENTATION ---
HPI-Neurological Disorder - General Chief Complaint: Altered Mental Status Stated Complaint: AMS Time Seen by Provider: 06/20/19 09:51 Source: family, EMS Allergies/Adverse Reactions: Patient Allergies Allergy/AdvReac Type Severity Reaction Status Date / Time Penicillins Allergy Intermediate SWELLING Verified 06/20/19 11:02 doxycycline Allergy Unknown Verified 06/20/19 11:02 aspirin AdvReac Severe GI BLEED Verified 06/20/19 11:02 morphine AdvReac Severe DECREASES Verified 06/20/19 11:02 BP Antihistamines - Alkylamine AdvReac Mild AGITAION Verified 06/20/19 11:02 levofloxacin [From Levaquin] AdvReac Mild HEADACHE Verified 06/20/19 11:02 meperidine HCl * AdvReac Mild HALLUCINATI Verified 06/20/19 11:02 [From Demerol] ONS quinine [Quinine] AdvReac Mild NAUSEA/VOMI Verified 06/20/19 11:02 TING Home Medications: Home Medication List Medication Instructions Recorded Confirmed Last Taken Type ATORVAstatin [Lipitor] 20 mg PO QHS 05/30/12 06/20/19 06/19/19 History Levothyroxine [Synthroid] 125 microgm PO DAILY 05/30/12 06/20/19 06/19/19 History Venlafaxine E.r. [Effexor Xr] 75 mg PO BID 05/30/12 06/20/19 06/19/19 History Ziprasidone [Geodon] 20 mg PO DAILY 05/30/12 06/20/19 06/19/19 History Gabapentin [Neurontin] 600 mg PO QHS 12/23/14 06/20/19 06/19/19 History Indapamide 1.25 mg PO DAILY 12/23/14 06/20/19 06/19/19 History Metoprolol Succinate [Toprol Xl] 200 mg PO DAILY 12/23/14 06/20/19 06/19/19 Hist ory Furosemide [Lasix] 20 mg PO DAILY 07/29/15 06/20/19 06/19/19 History Acetaminophen [Acetaminophen Extra 1 tab PO Q8H PRN 12/06/18 06/20/19 Unknown History Strength] Cyanocobalamin (Vitamin B-12) 1,000 mcg PO DAILY 12/06/18 06/20/19 Unknown History [Vitamin B12] Famotidine [Acid Motion Picture Set Grip] 1 tab PO BID 12/06/18 06/20/19 Unknown History Fenofibrate [Tricor] 2 tab PO QHS 12/06/18 06/20/19 06/19/19 History Hydrocodone/Acetaminophen 1 tab PO TID 12/06/18 06/20/19 06/20/19 History [Hydrocodone-Acetamin 7.5-325] Mag Hydrox/Aluminum Hyd/Simeth [Mi 15 ml PO QHS 12/06/18 06/20/19 06/19/19 History Acid Suspension] Meclizine HCl [Antivert] 1 tab PO BID 12/06/18 06/20/19 06/19/19 History Multivitamin,Therapeutic [Thera] 1 tab PO DAILY 12/06/18 06/20/19 06/19/19 History Ondansetron [Zofran] 1 tab PO Q6H PRN 12/06/18 06/20/19 Unknown History Patiromer [Veltassa] 8.4 mg PO DIRECTED 12/06/18 06/20/19 06/19/19 History Ranitidine [Zantac] 1 tab PO BID 12/06/18 06/20/19 06/20/19 History Sennosides/Docusate Sodium 1 tab PO BID 12/06/18 06/20/19 06/19/19 History [Senna-S Laxative Tablet] Albuterol 2.5MG/Ipratrop 0.5MG 3 ml INH RTQ6H #100 neb 12/09/18 06/20/19 Unknown Rx [Duoneb] Cephalexin [Keflex] 500 mg PO TID #21 cap 12/09/18 06/20/19 Unknown Rx Hydrocodone/APAP 10 mg/325 mg 1 ea PO QHS #30 tab 12/09/18 06/20/19 06/20/19 Rx [[place]-10] Lorazepam [Ativan] 1 mg PO QHS #30 tab 12/09/18 06/20/19 06/19/19 Rx Polyethylene Glycol 3350 [Gavilax] 1 dose PO DIRECTED 06/20/19 06/20/19 Unknown History Talc/Cellulose/Chloroxylenol 1 dose TD BID 06/20/19 06/20/19 06/20/19 History [Zeasorb Powder] - History of Present Illness-Neuro Nature of Presenting Problem: Presents to the EC from [place] who states that she was found to have AMS. Patient's daughter just last week and her dose of ativan was increased recently to help her cope with the . She also takes chronic pain medications. They deny any sick symptoms. History is limited as patient is altered and cannot answer questions. Review of Systems - Adult - REVIEW OF SYSTEMS - ADULT ROS:: ROS per family Constitutional: reports: see HPI Eyes: reports: see HPI Ears, Nose, Mouth & Throat: reports: see HPI Cardiovascular: reports: see HPI Respiratory: reports: see HPI Gastrointestinal: reports: see HPI Genitourinary: reports: see HPI Musculoskeletal: reports: see HPI Integumentary: reports: see HPI Neurological: reports: see HPI Psychiatric: reports: see HPI Endocrine: reports: see HPI Hematologic/Lymphatic: reports: see HPI Allergic/Immunologic: reports: see HPI All Other Systems: Reviewed and Negative Past History - Adult - PAST MEDICAL HISTORY-ADULT Review of Records: reports: Old Records Reviewed Major Childhood Illnesses: reports: denies history Cardiovascular: reports: CHF, HTN, hyperlipidemia Respiratory: reports: denies history Gastrointestinal: reports: GERD, ulcer Obstetrical/Gynecological: reports: denies history Genitourinary: reports: chronic UTI's Musculoskeletal: reports: arthritis, chronic pain, other (RA) Neurological: reports: other (neuropathy) Psychiatric: reports: depression Endocrine/Immune: reports: thyroid disorder Other Conditions: reports: denies history - PRIOR SURGERIES/PROCEDURES Surgical/Procedure History: reports: appendectomy, cholecystectomy, hysterectomy , tonsillectomy, other - IMMUNIZATION STATUS Childhood Immunizations: See Nurse Assessment Flu Vaccine: See Nurse Assessment - FAMILY HISTORY Family History: reviewed, not pertinent Physical Exam- Neurological - Physical Exam-Neuro Initial Vital Signs Reviewed: Yes General Appearance: other (responds to some verbal and painful stimuli) Eye Exam: bilateral eye: normal inspection, PERRL, other (dilated) HENMT: normocephalic/atraumatic Head Injury: no evidence of injury Neck: supple, normal inspection Respiratory: chest non-tender, no respiratory distress, no accessory muscle use, decreased breath sounds, crackles (at bases) Cardiovascular: normal peripheral pulses, no murmur, tachycardia, irregularly irregular Abdominal Exam: normal bowel sounds, non tender, soft, other (obese) 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 Exam: other (unable to cooperate) Coordination/Gait: other (unable to cooperation for exam) Motor/Sensory: other (unable to cooperate for exam) Neurologic: other (no gross facial drooping or abnormalities) Psych/Mental Status: disoriented x 3 - Glascow Coma Scale Best Eye Response: (3) open to voice Best Verbal Response: (1) no verbal response Best Motor Response: (6) obeys commands Total Glascow Score: 10 Progress - PLAN OF CARE/RESULTS Progress/Plan/Lab Results: Vital Signs - 8 hr 06/20/19 10:42 06/20/19 10:43 06/20/19 11:00 Pulse Rate 114 H 116 H 112 H Respiratory Rate 19 34 H 21 Blood Pressure 73/53 O2 Sat by Pulse Oximetry 98 98 06/20/19 11:02 06/20/19 11:20 06/20/19 11:22 Pulse Rate 115 H 114 H 122 H Respiratory Rate 21 20 24 Blood Pressure 148/55 164/148 103/83 O2 Sat by Pulse Oximetry 98 94 L 96 06/20/19 11:30 06/20/19 11:32 06/20/19 11:48 Pulse Rate 123 H 113 H 128 H Respiratory Rate 19 24 18 Blood Pressure 110/86 66/52 O2 Sat by Pulse Oximetry 93 L 95 06/20/19 12:30 06/20/19 12:34 06/20/19 12:51 Pulse Rate 116 H 110 H 112 H Respiratory Rate 21 25 H 19 Blood Pressure 144/91 129/80 O2 Sat by Pulse Oximetry 98 99 96 06/20/19 13:00 06/20/19 13:02 06/20/19 13:07 Pulse Rate 122 H 114 H 104 H Respiratory Rate 19 21 16 Blood Pressure 61/42 O2 Sat by Pulse Oximetry 95 100 93 L 06/20/19 13:10 06/20/19 13:11 06/20/19 13:22 Pulse Rate 108 H 107 H 102 H Respiratory Rate 21 18 19 Blood Pressure 121/85 O2 Sat by Pulse Oximetry 97 94 L 95 06/20/19 13:26 06/20/19 13:30 06/20/19 13:35 Pulse Rate 113 H 112 H 119 H Respiratory Rate 20 19 19 Blood Pressure 103/68 109/83 O2 Sat by Pulse Oximetry 96 95 98 Laboratory Results - last 24 hr 06/20/19 06/20/19 06/20/19 09:51 10:20 10:31 WBC RBC Hgb Hct MCV MCH MCHC RDW Std Deviation Plt Count MPV Immature Gran % (Auto) Neut % (Auto) Lymph % (Auto) Preston % (Auto) Eos % (Auto) Baso % (Auto) Immature Gran # (Auto) Neut # (Auto) Lymph # (Auto) Preston # (Auto) Eos # (Auto) Baso # (Auto) Segmented Neutrophils Band Neutrophils Lymphocytes Monocytes Metamyelocytes PT INR PTT (Actin FS) Specimen Type ARTERIAL Sample Site R RADIAL pH 7.31 L pCO2 56 H* pO2 198 H HCO3 25.8 Base Excess 1.1 Oxyhemoglobin 97.3 ABG O2 Sat (Calculated) 15.2 ABG O2 Saturation 99.0 ABG Carboxyhemoglobin 1.10 ABG Methemoglobin 0.7 Juan Test YES A-a O2 Difference 445.0 Total Hemoglobin 10.8 L Lactate 7.60 H* Liter Flow 15.0 Blood Gas Modality NRB FiO2 % 100.0 Sodium Potassium Chloride Carbon Dioxide Anion Gap BUN Creatinine Estimated GFR/1.73 m2 BUN/Creatinine Ratio Glucose POC Glucose 63 L 213 H D Calculated Osmolality Calcium Magnesium Total Bilirubin AST ALT Alkaline Phosphatase Creatine Kinase Creatine Kinase Index CK-MB (CK-2) Troponin T Ytc-[id number]-Cxiexxsxhvo Pept Total Protein Albumin Globulin Albumin/Globulin Ratio Plasma Lactate TSH Free T4 Urine Source Urine Color Urine Turbidity Urine pH Ur Specific [place] Urine Protein Ur Glucose (Stick) Ur Ketones (Stick) Urine Blood Urine Nitrite Urine Bilirubin Urobilinogen Dipstick Urine Leukocytes Urine WBC (Auto) Urine RBC (Auto) U Epithel Cells (Auto) Urine Bacteria (Auto) Urine Crystals Small Round Cells Urine Casts Urine Yeast-like Cells Salicylates Urine Opiates Screen Ur Oxycodone Screen Ur Methadone, Qual Acetaminophen Ur Barbiturates Screen Ur Phencyclidine Scrn Ur Amphetamines Screen U Benzodiazepines Scrn Urine Cocaine Screen U Cannabinoids Screen Plasma/Serum Ethyl Alc 06/20/19 06/20/19 06/20/19 10:32 10:32 10:32 WBC 14.58 H RBC 3.65 L Hgb 11.1 L Hct 37.1 MCV 101.6 H MCH 30.4 MCHC 29.9 L RDW Std Deviation 15.8 H Plt Count 311 MPV 10.4 Immature Gran % (Auto) 1.9 H Neut % (Auto) 67.3 Lymph % (Auto) 18.4 L Preston % (Auto) 11.7 H Eos % (Auto) 0.1 Baso % (Auto) 0.6 Immature Gran # (Auto) 0.28 H Neut # (Auto) 9.81 H Lymph # (Auto) 2.69 Preston # (Auto) 1.70 H Eos # (Auto) 0.01 Baso # (Auto) 0.09 Segmented Neutrophils 66 Band Neutrophils 10 H Lymphocytes 18 L Monocytes 4 Metamyelocytes 2.0 PT INR PTT (Actin FS) Specimen Type Sample Site pH pCO2 pO2 HCO3 Base Excess Oxyhemoglobin ABG O2 Sat (Calculated) ABG O2 Saturation ABG Carboxyhemoglobin ABG Methemoglobin Juan Test A-a O2 Difference Total Hemoglobin Lactate Liter Flow Blood Gas Modality FiO2 % Sodium Potassium Chloride Carbon Dioxide Anion Gap BUN Creatinine Estimated GFR/1.73 m2 BUN/Creatinine Ratio Glucose POC Glucose Calculated Osmolality Calcium Magnesium Total Bilirubin AST ALT Alkaline Phosphatase Creatine Kinase Creatine Kinase Index CK-MB (CK-2) Troponin T Qhq-H-Tktxymdllio Pept Total Protein Albumin Globulin Albumin/Globulin Ratio Plasma Lactate 8.0 H* TSH 0.62 Free T4 Urine Source Urine Color Urine Turbidity Urine pH Ur Specific [place] Urine Protein Ur Glucose (Stick) Ur Ketones (Stick) Urine Blood Urine Nitrite Urine Bilirubin Urobilinogen Dipstick Urine Leukocytes Urine WBC (Auto) Urine RBC (Auto) U Epithel Cells (Auto) Urine Bacteria (Auto) Urine Crystals Small Round Cells Urine Casts Urine Yeast-like Cells Salicylates Urine Opiates Screen Ur Oxycodone Screen Ur Methadone, Qual Acetaminophen Ur Barbiturates Screen Ur Phencyclidine Scrn Ur Amphetamines Screen U Benzodiazepines Scrn Urine Cocaine Screen U Cannabinoids Screen Plasma/Serum Ethyl Alc 06/20/19 06/20/19 06/20/19 10:32 10:32 10:32 WBC RBC Hgb Hct MCV MCH MCHC RDW Std Deviation Plt Count MPV Immature Gran % (Auto) Neut % (Auto) Lymph % (Auto) Preston % (Auto) Eos % (Auto) Baso % (Auto) Immature Gran # (Auto) Neut # (Auto) Lymph # (Auto) Preston # (Auto) Eos # (Auto) Baso # (Auto) Segmented Neutrophils Band Neutrophils Lymphocytes Monocytes Metamyelocytes PT 25.7 H INR 2.28 PTT (Actin FS) 39.6 Specimen Type Sample Site pH pCO2 pO2 HCO3 Base Excess Oxyhemoglobin ABG O2 Sat (Calculated) ABG O2 Saturation ABG Carboxyhemoglobin ABG Methemoglobin Juan Test A-a O2 Difference Total Hemoglobin Lactate Liter Flow Blood Gas Modality FiO2 % Sodium 135 L Potassium 5.9 H Chloride 86 L Carbon Dioxide 27 Anion Gap 22 BUN 58 H Creatinine 3.4 H Estimated GFR/1.73 m2 13 BUN/Creatinine Ratio 17 Glucose 215 H POC Glucose Calculated Osmolality 293 Calcium 8.9 Magnesium 3.6 H Total Bilirubin 1.04 H AST > 7000 H ALT 2012 H Alkaline Phosphatase 88 Creatine Kinase 269 H Creatine Kinase Index 0.8 CK-MB (CK-2) 2.13 Troponin T 0.111 H Ftq-B-Lwsfvdroeyb Pept Total Protein 6.5 Albumin 2.9 L Globulin 3.6 Albumin/Globulin Ratio 0.8 Plasma Lactate TSH Free T4 Urine Source Urine Color Urine Turbidity Urine pH Ur Specific [place] Urine Protein Ur Glucose (Stick) Ur Ketones (Stick) Urine Blood Urine Nitrite Urine Bilirubin Urobilinogen Dipstick Urine Leukocytes Urine WBC (Auto) Urine RBC (Auto) U Epithel Cells (Auto) Urine Bacteria (Auto) Urine Crystals Small Round Cells Urine Casts Urine Yeast-like Cells Salicylates < 3.00 L Urine Opiates Screen Ur Oxycodone Screen Ur Methadone, Qual Acetaminophen 16.7 Ur Barbiturates Screen Ur Phencyclidine Scrn Ur Amphetamines Screen U Benzodiazepines Scrn Urine Cocaine Screen U Cannabinoids Screen Plasma/Serum Ethyl Alc 06/20/19 06/20/19 06/20/19 10:32 10:32 10:32 WBC RBC Hgb Hct MCV MCH MCHC RDW Std Deviation Plt Count MPV Immature Gran % (Auto) Neut % (Auto) Lymph % (Auto) Preston % (Auto) Eos % (Auto) Baso % (Auto) Immature Gran # (Auto) Neut # (Auto) Lymph # (Auto) Preston # (Auto) Eos # (Auto) Baso # (Auto) Segmented Neutrophils Band Neutrophils Lymphocytes Monocytes Metamyelocytes PT INR PTT (Actin FS) Specimen Type Sample Site pH pCO2 pO2 HCO3 Base Excess Oxyhemoglobin ABG O2 Sat (Calculated) ABG O2 Saturation ABG Carboxyhemoglobin ABG Methemoglobin Juan Test A-a O2 Difference Total Hemoglobin Lactate Liter Flow Blood Gas Modality FiO2 % Sodium Potassium Chloride Carbon Dioxide Anion Gap BUN Creatinine Estimated GFR/1.73 m2 BUN/Creatinine Ratio Glucose POC Glucose Calculated Osmolality Calcium Magnesium Total Bilirubin AST ALT Alkaline Phosphatase Creatine Kinase Creatine Kinase Index CK-MB (CK-2) Troponin T Ukw-E-Piomfbcadnf Pept > 32616 H Total Protein Albumin Globulin Albumin/Globulin Ratio Plasma Lactate TSH Free T4 1.90 H Urine Source Urine Color Urine Turbidity Urine pH Ur Specific [place] Urine Protein Ur Glucose (Stick) Ur Ketones (Stick) Urine Blood Urine Nitrite Urine Bilirubin Urobilinogen Dipstick Urine Leukocytes Urine WBC (Auto) Urine RBC (Auto) U Epithel Cells (Auto) Urine Bacteria (Auto) Urine Crystals Small Round Cells Urine Casts Urine Yeast-like Cells Salicylates Urine Opiates Screen Ur Oxycodone Screen Ur Methadone, Qual Acetaminophen Ur Barbiturates Screen Ur Phencyclidine Scrn Ur Amphetamines Screen U Benzodiazepines Scrn Urine Cocaine Screen U Cannabinoids Screen Plasma/Serum Ethyl Alc 06/20/19 06/20/19 06/20/19 10:39 10:39 13:30 WBC RBC Hgb Hct MCV MCH MCHC RDW Std Deviation Plt Count MPV Immature Gran % (Auto) Neut % (Auto) Lymph % (Auto) [place] % (Auto) Eos % (Auto) Baso % (Auto) Immature Gran # (Auto) Neut # (Auto) Lymph # (Auto) [place] # (Auto) Eos # (Auto) Baso # (Auto) Segmented Neutrophils Band Neutrophils Lymphocytes Monocytes Metamyelocytes PT INR PTT (Actin FS) Specimen Type Sample Site pH pCO2 pO2 HCO3 Base Excess Oxyhemoglobin ABG O2 Sat (Calculated) ABG O2 Saturation ABG Carboxyhemoglobin ABG Methemoglobin Juan Test A-a O2 Difference Total Hemoglobin Lactate Liter Flow Blood Gas Modality FiO2 % Sodium Potassium Chloride Carbon Dioxide Anion Gap BUN Creatinine Estimated GFR/1.73 m2 BUN/Creatinine Ratio Glucose POC Glucose Calculated Osmolality Calcium Magnesium Total Bilirubin AST ALT Alkaline Phosphatase Creatine Kinase Creatine Kinase Index CK-MB (CK-2) Troponin T Gws-S-Rqlcgswctlu Pept Total Protein Albumin Globulin Albumin/Globulin Ratio Plasma Lactate 6.5 H* TSH Free T4 Urine Source CATH Urine Color ORANGE Urine Turbidity TURBID Urine pH 5.5 Ur Specific [place] 1.016 Urine Protein 100 A Ur Glucose (Stick) NEGATIVE Ur Ketones (Stick) NEGATIVE Urine Blood SMALL A Urine Nitrite NEGATIVE Urine Bilirubin NEGATIVE Urobilinogen Dipstick NORMAL Urine Leukocytes LARGE A Urine WBC (Auto) TNTC A Urine RBC (Auto) TNTC A U Epithel Cells (Auto) >10 A Urine Bacteria (Auto) 1+ Urine Crystals Not Reportable Small Round Cells Not Reportable Urine Casts NONE SEEN Urine Yeast-like Cells NONE SEEN Salicylates Urine Opiates Screen PRESUMPTIVE POSITIVE A Ur Oxycodone Screen NONE DETECTED Ur Methadone, Qual NONE DETECTED Acetaminophen Ur Barbiturates Screen NONE DETECTED Ur Phencyclidine Scrn NONE DETECTED Ur Amphetamines Screen NONE DETECTED U Benzodiazepines Scrn NONE DETECTED Urine Cocaine Screen NONE DETECTED U Cannabinoids Screen NONE DETECTED Plasma/Serum Ethyl Alc 06/20/19 13:38 WBC RBC Hgb Hct MCV MCH MCHC RDW Std Deviation Plt Count MPV Immature Gran % (Auto) Neut % (Auto) Lymph % (Auto) [place] % (Auto) Eos % (Auto) Baso % (Auto) Immature Gran # (Auto) Neut # (Auto) Lymph # (Auto) [place] # (Auto) Eos # (Auto) Baso # (Auto) Segmented Neutrophils Band Neutrophils Lymphocytes Monocytes Metamyelocytes PT INR PTT (Actin FS) Specimen Type Sample Site pH pCO2 pO2 HCO3 Base Excess Oxyhemoglobin ABG O2 Sat (Calculated) ABG O2 Saturation ABG Carboxyhemoglobin ABG Methemoglobin Juan Test A-a O2 Difference Total Hemoglobin Lactate Liter Flow Blood Gas Modality FiO2 % Sodium Potassium Chloride Carbon Dioxide Anion Gap BUN Creatinine Estimated GFR/1.73 m2 BUN/Creatinine Ratio Glucose POC Glucose 142 H Calculated Osmolality Calcium Magnesium Total Bilirubin AST ALT Alkaline Phosphatase Creatine Kinase Creatine Kinase Index CK-MB (CK-2) Troponin T Fgk-F-Afbbvdvrpwh Pept Total Protein Albumin Globulin Albumin/Globulin Ratio Plasma Lactate TSH Free T4 Urine Source Urine Color Urine Turbidity Urine pH Ur Specific [place] Urine Protein Ur Glucose (Stick) Ur Ketones (Stick) Urine Blood Urine Nitrite Urine Bilirubin Urobilinogen Dipstick Urine Leukocytes Urine WBC (Auto) Urine RBC (Auto) U Epithel Cells (Auto) Urine Bacteria (Auto) Urine Crystals Small Round Cells Urine Casts Urine Yeast-like Cells Salicylates Urine Opiates Screen Ur Oxycodone Screen Ur Methadone, Qual Acetaminophen Ur Barbiturates Screen Ur Phencyclidine Scrn Ur Amphetamines Screen U Benzodiazepines Scrn Urine Cocaine Screen U Cannabinoids Screen Plasma/Serum Ethyl Alc Orders Category Date Time Status Admit - [facility] Routine AdmDCTranf 06/20/19 13:17 Active Activity - Up with Assistance ORDERED Care 06/20/19 13:17 Active Apply Mechanical Device [QM] ORDERED Care 06/20/19 13:17 Active Cardiac Monitoring DIRECTED Care 06/20/19 10:07 Active FSBS/Accucheck Result AC + HS Care 06/20/19 13:17 Active IV Insertion ORDERED Care 06/20/19 10:07 Completed Notify MD of + Sepsis Screen NOW Care 06/20/19 10:07 Active Notify Physician As Ordered Care 06/20/19 10:07 Active Nursing- MD Consult Request ROUTINE Care 06/20/19 13:07 Active MD [Physician/Provider Consults] Routine Cons 06/20/19 13:06 Ordered Clear Liquid Diet Diet 06/20/19 13:18 Active CHEST-1 VIEW [RAD] Stat Exams 06/20/19 10:[address] HEAD W/O CONTRAST [CT] Stat Exams 06/20/19 09:[address] THORAX/ABD/PELVIS W/O CON [CT] Stat Exams 06/20/19 13:20 Ordered US ABDOMEN-COMPLETE [US] Stat Exams 06/20/19 13:08 Completed ABG [RESP] Routine Lab 06/20/19 10:20 Completed ACETAMINOPHEN [TDM] Routine Lab 06/21/19 06:00 Ordered ACETAMINOPHEN [TDM] Stat Lab 06/20/19 10:32 Completed ALCOHOL BLOOD Stat Lab 06/20/19 10:32 Completed AMMONIA [CHEM] Stat Lab 06/20/19 12:33 Ordered BLOOD CULTURE [BLDCUL] Stat Lab 06/20/19 10:23 Results CBC WITH DIFF [HEME] Stat Lab 06/20/19 10:32 Completed CK PROFILE [SP CHEM] Stat Lab 06/20/19 10:32 Completed COMPREHENSIVE METABOLIC PANEL [CHEM] Stat Lab 06/20/19 10:32 Completed FREE T4 Stat Lab 06/20/19 10:32 Completed HEPATITIS PROFILE [HH] Stat Lab 06/20/19 13:08 Ordered LACTATE, PLASMA [CHEM] Stat Lab 06/20/19 10:32 Completed LACTATE, PLASMA [CHEM] Stat Lab 06/20/19 13:30 Completed LACTATE, PLASMA [CHEM] Stat Lab 06/20/19 18:00 Ordered MAGNESIUM [CHEM] Stat Lab 06/20/19 10:32 Completed PRO B-NATRIURETIC PEPTIDE Stat Lab 06/20/19 10:32 Completed PROTIME WITH INR [COAG] Stat Lab 06/20/19 10:32 Completed PTT [COAG] Stat Lab 06/20/19 10:32 Completed SALICYLATES [TDM] Stat Lab 06/20/19 10:32 Completed TROPONIN T Stat Lab 06/20/19 10:32 Completed TSH Stat Lab 06/20/19 10:32 Completed URINALYSIS W/POSS RFLX CULT [URINALYSIS] Stat Lab 06/20/19 10:39 Completed URINE CULTURE [RM] Routine Lab 06/20/19 11:00 Received URINE DRUG SCREEN Stat Lab 06/20/19 10:39 Completed URINE MANUAL MICROSCOPIC [URINALYSIS] Stat Lab 06/20/19 10:39 Completed 0.9% Sodium Chloride Inj [Ns] 1,000 ml Med 06/20/19 13:17 Discontinued IV 125 mls/hr 0.9% Sodium Chloride Inj [Ns] 1,000 ml Med 06/20/19 10:24 Discontinued IV 999 mls/hr 0.9% Sodium Chloride Inj [Ns] 1,000 ml Med 06/20/19 11:15 Discontinued IV 999 mls/hr Albuterol 2.5MG/Ipratrop 0.5MG [Duoneb (A & A)] Med 06/20/19 16:00 Active 3 ml INH RTQ6H CefEPIME [Maxipime] 1 gm Med 06/20/19 11:47 Discontinued 0.9% Sodium Chloride Inj [Ns] 50 ml IV NOW CefTRIAXONE [Rocephin] 1 gm Med 06/20/19 11:15 Discontinued 0.9% Sodium Chloride Inj [Ns] 50 ml IV NOW Dextrose 50% Syringe [D50w Syringe] Med 06/20/19 10:03 Discontinued 50 ml .ROUTE .STK-MED ONE Dextrose 50% Syringe [D50w Syringe] Med 06/20/19 10:53 Discontinued 50 ml IV NOW ONE Levothyroxine [Synthroid] Med 06/21/19 07:00 Discontinued 125 microgm PO ACB Meclizine [Antivert] Med 06/20/19 21:00 Active 25 mg PO BID Metoprolol Succinate E.r. [Toprol Xl] Med 06/21/19 09:00 Discontinued 200 mg PO DAILY Naloxone [Narcan] Med 06/20/19 10:52 Discontinued 1 mg IV NOW ONE Naloxone [Narcan] Med 06/20/19 10:53 Discontinued 1 mg IV NOW ONE Naloxone [Narcan] Med 06/20/19 10:04 Discontinued 2 mg .ROUTE .STK-MED ONE Ondansetron [Zofran] Med 06/20/19 13:17 Active 4 mg IV Q4H PRN PRN Vancomycin 1 gm/Ns Med 06/20/19 11:47 Discontinued 1 gm in 250 ml IV NOW Aerosol Treatments Routine Oth 06/20/19 13:17 Active Aerosol Treatments Stat Oth 06/20/19 13:17 Active Oxygen Device Stat Ot 06/20/19 10:07 Completed Transfer/Admit Order [TRANSFER] Routine Transfer 06/20/19 13:09 Ordered Patient given narcan and mental status improved. Still not at baseline. CT Head negative. CXR showing PNA and UA showing UTI. Will need admission. Likely combination with polypharmacy, UTI and PNA. Spoke to MARY Serrano rehabilitation team lead for hospitalist who accepted patient for admission. Further orders to be placed by their team. Result Diagrams: 06/20/19 10:32 06/20/19 10:32 - XRAY 1 XRAY Study: Chest (EXAM: CHEST-1 VIEW 06/20/2019 HISTORY: AMS TECHNIQUE: AP portable at 1057 COMMENT: There is increasing alveolar opacification of the left lower lobe compared to 12/09/2018. The patient is slightly rotated to the left. IMPRESSION: Atelectasis and/or pneumonia left lower lobe. Electronically signed by Sunny Deras 06/20/2019 11:03 AM) - CT/MRI 1 CT Study: Head ( EXAM: CT HEAD W/O CONTRAST 06/20/2019 HISTORY: AMS TECHNIQUE: This exam was performed using automated exposure control, adjustment of mA or kV according to patient size, and/or use of iterative reconstruction technique. COMMENT: There are calcifications in the vertebral and internal carotid arteries. There are patchy lucencies in the periventricular white matter of both hemispheres. The patient's head is tilted and rotated to the left. Compared to 12/06/2018 the appearance the brain has not changed significantly. There is no evidence of mass effect, bleed, or abnormal extra-axial fluid collection. The visualized paranasal sinuses are clear. The calvarium is intact. IMPRESSION: Chronic ischemic changes. No evidence of acute intracranial disease. Electronically signed by Sunny Deras 06/20/2019 9:55 AM) - CONSULTS/PCP/HOSPITALIST Notification #1 *Consult/PCP/Hospitalist*: MARY Serrano for hospitalist Time Discussed: 11:46 Consult Disposition: Admit Departure - Departure Date of Disposition Decision: 06/20/19 Time of Disposition Decision: 11:46 DIAGNOSIS: Hyperkalemia, Pneumonia, Altered mental status, Polypharmacy, Pneumonia Disposition: ADMITTED INPATIENT 09 Certified Medical Emergency: Emergent Condition: Critical - Critical Care Note This patient required my direct & personal management of CC.: Yes Total Time (mins): 65 Critical Care Statement: This patient required my direct personal management to treat or rule out processes, the absence of which, could potentiallly result in sudden, clinically significant life or limb threatening deterioration. Attestation - Physician/ DELMAR Attestation Patient care was provided by Advanced Practice Provider:: No The physician spent face to face time with patient:: Yes Advanced Practice Provider documentation review:: Supervising physician onsite and consulted in the evaluation and care of this patient. The physician did have a face to face encounter with the patient.
[2019-06-20] MEDS ORDERED: NS 1,000 ML IV ONE ×2 (10:24→11:15)
[2019-06-20 10:37] LABS: ALLEN TEST YES; BE 1.1 mmoll (-3.0-3.0); BLOOD TYPE ARTERIAL; HCO3-(ACT) 25.8 mmoll (20.0-26.0); METHB 0.7 % (0.0-1.5); O2(CT) 15.2 mL/dL (15.0-23.0); O2HB 97.3 % (95.0-99.0); PO2(98.6) 198 mmHg (60-100); SAMPLE BLOOD; THB 10.8 g/dL (11.5-17.4); pH(98.6) 7.31 (7.35-7.45)
[2019-06-20 10:41] LABS: MODALITY NRB; PCO2(98.6) 56 mmHg (35-45)
[2019-06-20] MEDS ORDERED: NARCAN IV ONE ×2 (10:52→10:53)
[2019-06-20] MEDS ORDERED: D50W SYRINGE IV ONE ×2 (10:53→23:15)
[2019-06-20 10:56] LABS: URINE SOURCE CATH
[2019-06-20 11:03] LABS: BILIRUBIN URINE NEGATIVE (NEGATIVE); BLOOD URINE SMALL (NEGATIVE); COLOR ORANGE; GLUCOSE URINE NEGATIVE (NEGATIVE); KETONE URINE NEGATIVE (NEGATIVE); LEUKOCYTES URINE LARGE (NEGATIVE); NITRITE URINE NEGATIVE (NEGATIVE); PH URINE 5.5; PROTEIN URINE 100 mg/dL (NEGATIVE); SP GRAVITY URINE 1.016; TURBIDITY URINE TURBID (CLEAR); UROBILINOGEN URINE NORMAL (NORMAL)
--- NOTE | 2019-06-20 11:05 | Diag Imaging Result Doc PS360 ---
EXAM: CHEST-1 VIEW 06/20/2019 HISTORY: AMS TECHNIQUE: AP portable at 1057 COMMENT: There is increasing alveolar opacification of the left lower lobe compared to 12/09/2018. The patient is slightly rotated to the left. IMPRESSION: Atelectasis and/or pneumonia left lower lobe. Electronically signed by Sunny Deras 06/20/2019 11:03 AM
[2019-06-20 11:08] LABS: UR EPITHELIAL CELLS >10 /HPF (<10); URINE BACTERIA 1+ /HPF; URINE RBC TNTC /HPF (<10); URINE WBC TNTC /HPF (<10)
[2019-06-20 11:08] LABS: BASO# 0.09 X1000 (0.0-0.2); BASO% 0.6 % (0.0-0.8); EOS# 0.01 X1000 (0.0-0.7); EOS% 0.1 % (0.0-10.0); HEMATOCRIT 37.1 % (37.0-47.0); HEMOGLOBIN 11.1 g/dL (12.0-16.0); IMM GRAN# 0.28 X1000 (0.0-0.04); IMM GRAN% 1.9 % (0.0-0.5); LYMPH# 2.69 X1000 (1.2-3.4); LYMPH% 18.4 % (20.5-51.1); MCH 30.4 PG (27-31); MCHC 29.9 g/dL (33-37); MCV 101.6 FL (81-99); MONO% 11.7 % (1.7-9.3); MPV 10.4 FL (7.4-10.4); NEUT# 9.81 X1000 (1.4-6.5); NEUT% 67.3 % (42.2-75.2); PLT 311 X1000 (130-400); RBC 3.65 XMIL (4.2-5.4); RDW 15.8 % (11.5-14.5); WBC 14.58 X1000 (4.8-10.8)
[2019-06-20 11:09] LABS: URINE CASTS NONE SEEN; URINE YEAST NONE SEEN
[2019-06-20 11:12] LABS: INR 2.28; PROTIME 25.7 Seconds (11.0-16.0)
[2019-06-20 11:13] LABS: PTT 39.6 Seconds (22.3-41.8)
[2019-06-20] MEDS ORDERED: ROCEPHIN 1 GM in NS 50 ML IV ONE (11:15)
[2019-06-20 11:30] LABS: BANDS 10 % (0-1); LYMPHS 18 % (21-51); MONO 4 % (1-9); SEGS 66 % (42-75)
[2019-06-20 11:31] LABS: ACETAMINOPHEN 16.7 ug/mL (10-30); AGAP 22; ALB/GLOB RATIO 0.8; ALBUMIN 2.9 g/dL (3.5-5.0); ALKALINE PHOSPHATASE 88 U/L (32-104); BUN 58 mg/dL (8-22); CALCIUM 8.9 mg/dL (8.8-10.2); CHLORIDE 86 mmol/L (98-107); CK PROFILE 269 U/L (24-173); COSMO 293; CREATININE 3.4 mg/dL (0.5-0.9); ESTIMATED GFR 13; GLUCOSE 215 mg/dL (70-104); MAGNESIUM 3.6 mg/dL (1.5-2.7); POTASSIUM 5.9 mmol/L (3.5-5.1); SALICYLATES < 3.00 mg/dL (3-10); SODIUM 135 mmol/L (136-145); TCO2 27 mmol/L (25-35); TOTAL BILIRUBIN 1.04 mg/dL (0.20-1.00); TOTAL PROTEIN 6.5 g/dL (6.3-8.3)
[2019-06-20] MEDS ORDERED: MAXIPIME 1 GM in NS 50 ML IV ONE (11:47)
[2019-06-20] MEDS ORDERED: VANCOMYCIN 1 GM/NS 1 GM/250 ML IVPB IV ONE (11:47)
[2019-06-20 11:52] LABS: GOT > 7000 U/L (10-30); GPT 2012 U/L (10-36)
[2019-06-20 12:12] LABS: CK INDEX 0.8 (0.0-2.5); CK-MB 2.13 ng/mL (0.0-5.0)
[2019-06-20 12:32] LABS: UR AMPHETAMINES QUAL NONE DETECTED (NONE DETECT); UR BARBITUATES QUAL NONE DETECTED (NONE DETECT); UR BENZODIAZEPIN QUAL NONE DETECTED (NONE DETECT); UR CANNABINOIDS QUAL NONE DETECTED (NONE DETECT); UR COCAINE QUAL NONE DETECTED (NONE DETECT); UR METHADONE QUAL NONE DETECTED (NONE DETECT); UR OPIATES QUAL PRESUMPTIVE POSITIVE (NONE DETECT); UR OXYCODONE QUAL NONE DETECTED (NONE DETECT); UR PCP QUAL NONE DETECTED (NONE DETECT)
[2019-06-20] MEDS ORDERED: ZOFRAN IV PRN (13:17)
[2019-06-20] MEDS ORDERED: NS 1,000 ML IV SCH ×2 (13:17→16:34)
--- NOTE | 2019-06-20 14:34 | Diag Imaging Result Doc PS360 ---
EXAM: US ABDOMEN-COMPLETE 06/20/2019 HISTORY: transaminitis TECHNIQUE: Abdominal ultrasound COMMENT: The aorta and inferior vena cava are not well demonstrated and the pancreas is obscured. The left kidney and spleen are not well demonstrated. The liver is hyperechoic. The gallbladder is not visible. The right kidney appears to be atrophic with lobulation of the cortex measuring only 9.1 cm in greatest dimension. IMPRESSION: Suboptimal study. Hepatic steatosis. Electronically signed by Sunny Deras 06/20/2019 2:32 PM
[2019-06-20] MEDS ORDERED: CARDIZEM 100 MG/NS 100 MG/100 ML IVPB IV SCH (16:30)
[2019-06-20] MEDS ORDERED: SODIUM CHLORIDE 0.9% INJ SCH (16:30)
[2019-06-20] MEDS ORDERED: PROTONIX IV SCH (16:30)
[2019-06-20] MEDS ORDERED: VANCOMYCIN IV PER PHARMACY MISC SCH (16:30)
[2019-06-20] MEDS ORDERED: SODIUM CHLORIDE 0.9% INJ PRN (16:33)
[2019-06-20] MEDS: DUONEB (A & A) INH SCH ×3 (16:49→22:00)
--- NOTE | 2019-06-20 17:28 | EKG Report ---
Test Performed on : 06/20/2019 09:53:48 AM Test Reason : AMS, H/O A-fib Blood Pressure : / mmHG Vent. Rate : 119 BPM Atrial Rate : 117 BPM P-R Int : 000 ms QRS Dur : 132 ms QT Int : 336 ms P-R-T Axes : 000 -18 156 degrees QTc Int : 472 ms Atrial fibrillation. with rapid ventricular response. with premature ventricular or aberrantly conduc toni complexes. Nonspecific intraventricular block Inferior infarct (cited on or before 27-OCT-2013) T wave abnormality, consider lateral ischemia Abnormal ECG When compared with ECG of 07-DEC-2018 06:36, Atrial fibrillation. has replaced Sinus rhythm. Vent. rate has increased BY 43 BPM T wave inversion now evident in Lateral leads Unconfirmed Result
--- NOTE | 2019-06-20 17:56 | HISTORY AND PHYSICAL ---
PRIMARY CARE PROVIDER: Dr. Soto. CHIEF COMPLAINT: Altered mental status. HISTORY OF PRESENT ILLNESS: Ms. Gila Vallejo is an 79-year-old, female, with a medical history of congestive heart failure, chronic pain, hypertension, anxiety, chronic kidney disease stage 3, hypothyroidism, depression, who has been living at [facility]. On this last Saturday, her daughter and the visitation was Saturday, the was Saturday. Apparently, she has been becoming more anxious, and starting Saturday, they had increased her Ativan. They were able to get her into a wheelchair Saturday to take her to visitation, but did not keep her there long because she was very lethargic. The following day, which was Saturday, and today is Saturday, they once again to occur in the wheelchair to her daughter's and she was lethargic, but she was still alert enough for the . They took her back to [facility] and ever since, she has become increasingly lethargic. She has been bed-bound for at least 2 years now, so she does not normally get up into a wheelchair and go places. However, with these new changes, she was brought to the emergency department where she was evaluated and it appears that she does have a urinary tract infection. She has acute kidney injury. She has liver failure, possible sepsis because she has elevated lactate, elevated white blood cell count, heart rate is up. EKG shows that she has a new-onset atrial fibrillation with RVR. She has never had atrial fibrillation before. She is very lethargic, does not really answer questions, lifts her head to our voice, and so she is very sick. The resuscitation status was discussed with the daughter. She wishes for no chest compressions. She is okay with drugs and with intubation, but that is all. PAST MEDICAL HISTORY: 1. Reported congestive heart failure. The daughter did not seem to know anything about that. I do not see any old echocardiogram, so we could consider getting an echo because she has new- onset atrial fibrillation. 2. Hypertension. 3. Hyperlipidemia. 4. Chronic pain secondary to severe arthritis, even the left ankle is deformed. 5. GERD. 6. Chronic urinary tract infections. 7. Osteoarthritis and rheumatoid arthritis. 8. Chronic kidney disease stage 3. 9. Neuropathy. 10. Depression. 11. Hypothyroidism. 12. Skin cancer. 13. GI bleed. SURGICAL HISTORY: 1. Appendectomy. 2. Cholecystectomy. 3. Hysterectomy. 4. Tonsillectomy and adenoidectomy. 5. Skin cancer excisions. 6. Bilateral knee replacements. 7. Left ankle repair. 8. Bilateral rotator cuff. FAMILY HISTORY: Mother had stroke. Father had stomach cancer. SOCIAL HISTORY: She is currently residing at [facility]. Denies tobacco, alcohol, or illicit drug use. Daughter at the bedside states she has been bed-bound for at least 2 years. ALLERGIES: Penicillin, aspirin, morphine antihistamines, Levaquin, Demerol, and quinine. HOME MEDICATIONS: 1. Lipitor 20 mg p.o. nightly. 2. Maalox 15 mL p.o. nightly. 3. Neurontin 600 mg p.o. nightly. 4. Tricor 48 mg x2 tablets p.o. nightly. 5. Tylenol Extra Strength 1 tablet p.o. every 8 hours p.r.n. 6. Pepcid 10 mg p.o. twice daily. 7. Antivert 25 mg p.o. twice daily. 8. Effexor 75 mg p.o. twice daily. 9. MiraLAX 17 g p.o. as directed. 10. Geodon 20 mg p.o. daily. 11. Gunnison 7.5 one tablet p.o. t.i.d. 12. Indapamide 1.25 mg p.o. daily. 13. Lasix 20 mg p.o. daily. 14. Senokot 1 tablet p.o. twice daily. 15. Synthroid 125 mcg p.o. daily. 16. Multivitamin 1 tablet p.o. daily. 17. Toprol 200 mg p.o. daily. 18. Veltassa 8.4 mg p.o. as directed or 6 times a week. 19. Vitamin B12, 1000 mcg p.o. daily. 20. Zantac 150 mg p.o. twice daily. 21. Zeasorb powder 71 g twice a day transdermal. 22. Zofran 4 mg p.o. every 6 hours p.r.n. 23. Ativan 1 mg p.o. nightly. 24. Gunnison 10 one tablet p.o. nightly. 25. DuoNeb scheduled every 6 hours for 7 days, then every 4 hours p.r.n. 26. Keflex 500 mg p.o. t.i.d., that was for 7 days. Those 2 were back in November of this past year. REVIEW OF SYSTEMS: Unable to obtain. PHYSICAL EXAMINATION: VITAL SIGNS: Temperature is 97.6 degrees, heart rate is 115, respiratory rate 19, blood pressure 115/88, O2 saturation 94% on, I believe, 6 L nasal cannula. GENERAL: Ms. Gila Vallejo is an 79-year-old, female. She seems to be in mildly acute distress. She is unable to answer any questions. HEENT: Atraumatic, normocephalic. Pupils are dilated, but reactive. Extraocular movements, unable to perform. Mucous membranes are moist. NECK: Trachea midline. CARDIOVASCULAR: Irregularly irregular, tachycardic rate and rhythm. No rubs, gallops, or murmurs. She has 1 to 2+ lower extremity pitting edema, and +2 dorsalis and radial pulses. Negative for JVD or carotid bruits. PULMONARY: Crackles bilaterally. Mild accessory muscle use and work of breathing noted. GASTROINTESTINAL: Soft, nontender, nondistended. Positive bowel sounds x4. EXTREMITIES: She is not really moving her extremities right now. NEUROLOGIC: Said her name, but that was it. Does not follow commands. SKIN: Warm, dry, intact. LABORATORY DATA: White blood cells 14,000, hemoglobin 11, hematocrit 37, platelet count 311,000. INR is 2.28, PTT is 39.6. ABG, pH 7.31, pCO2 of 56, PO2 of 198, bicarbonate 25, base excess 1.1, saturation 97%. Lactate was 7.6. That was on a non-rebreather. Sodium 135, potassium 5.9, BUN 58, creatinine is 3.4, glucose 215, calcium 8.9, magnesium 3.6, bilirubin is 1.08, AST is greater than 7000, ALT is 2012. CK 269, troponin 0.111. ProBNP is greater than 35,000. Albumin is 2.9. Lactate 8.0, then down to 6.5. TSH 0.62, free T4 is 1.90. Urinalysis, 100 protein, small blood, large leukocytes, ytm-sscfhnxv-dx-count white blood cells, god-ziapjoth-ca-count red blood cells, 1+ bacteria. Salicylates less than 3. Acetaminophen is 16.7. Urine drug screen positive for opiates. Alcohol 0. IMAGING: Head CT, chronic ischemic changes, nothing acute. Chest x-ray, atelectasis and left lower lobe pneumonia. Abdominal ultrasound, hepatic steatosis. ASSESSMENT AND PLAN: 1. Acute respiratory failure, hypoxemic, hypercarbic. Requiring oxygen at this time. Nebulizers initiated. 2. Hepatic encephalopathy. She is not very alert right now. Could be toxic encephalopathy from her pain medication and her Ativan. 3. Acute liver injury. Cause is unknown. Abdominal ultrasound shows hepatic steatosis. She does have elevation in her Tylenol. We will also follow up on the CT of the abdomen and pelvis. An ammonia level has been ordered. We will do lactulose if we have an elevated ammonia. We have consulted GI. 4. Sepsis, likely secondary to urinary tract infection and left lower lobe pneumonia. She has been started on cefepime and vancomycin. She has been getting IV fluid hydration as well, and that will be run at 125 mL/h. 5. Coagulopathy which is likely secondary to liver failure. We will do a daily INR, daily platelet, and daily PTT. May have to treat as needed. There are no signs or symptoms of bleeding at this time. Hemoglobin and hematocrit are stable. 6. New-onset atrial fibrillation with rapid ventricular response. She is hyperkalemic and her magnesium is actually elevated as well. May have to do Cardizem. She takes metoprolol at home, but I do not feel like she is going to be able to take anything p.o. We are likely going to need to get an echocardiogram on her as well. Troponins are up, it could be heart related as far as congestive heart failure possibility, so will do serial cardiac enzymes. 7. Reported congestive heart failure. We do not have an echocardiogram here, but the proBNP is significantly elevated. Chest x-ray does not show any pulmonary edema. She has some acute on chronic kidney disease as well, so we will hold off on Lasix for now. May consider consulting Cardiology in the morning for the atrial fibrillation for heart failure. 8. Sepsis secondary to urinary tract infection and pneumonia. She is on antibiotics and IV fluids. 9. Hyperkalemia and hypermagnesemia. Potassium is 5.9, magnesium is 3.4. We are going to give some insulin and dextrose to bring that down. 10. Hypothyroidism. We will change her p.o. Synthroid to IV Synthroid. 11. Chronic pain, significant arthritis. We will hold off on pain medication for now. 12. History of gastroesophageal reflux disease and gastrointestinal bleed. We will do IV Protonix just once a day. 13. Deep venous thrombosis prophylaxis. SCD. Dictated by EDY Casas for Truman Butts MD Addendum: Patient seen and examined by myself. Agree with EDY note. It reflects my assessment and plan. Patient is being admitted to hospital for metabolic encephalopathy. Her labs revealed acute liver failure of unknown source. Will check hepatitis panel. Not sure about how much Tylenol she has been receiving in nursing. home Will send her to ICU. She also was found to be on atrial fibrillation new onset. Will continue to monitor. Prognosis is guarded. Critical care time 50 minutes. cc: EDY Casas MD [facility]
[2019-06-20] MEDS: LOPRESSOR IV SCH ×2 (18:17→22:45)
[2019-06-20 19:45] LABS: AGAP 26; ALB/GLOB RATIO 0.9; ALKALINE PHOSPHATASE 94 U/L (32-104); BUN 59 mg/dL (8-22); CALCIUM 8.4 mg/dL (8.8-10.2); CHLORIDE 91 mmol/L (98-107); COSMO 289; CREATININE 3.4 mg/dL (0.5-0.9); ESTIMATED GFR 13; GLUCOSE 102 mg/dL (70-104); POTASSIUM 5.7 mmol/L (3.5-5.1); SODIUM 136 mmol/L (136-145); TCO2 19 mmol/L (25-35); TOTAL BILIRUBIN 1.05 mg/dL (0.20-1.00); TOTAL PROTEIN 6.3 g/dL (6.3-8.3)
[2019-06-20 19:47] LABS: CK INDEX 0.9 (0.0-2.5); CK-MB 3.1 ng/mL (0.0-5.0)
[2019-06-20 19:55] LABS: GOT > 7000 U/L (10-30); GPT 3411 U/L (10-36)
--- NOTE | 2019-06-20 20:44 | Diag Imaging Result Doc PS360 ---
EXAM: CT THORAX/ABD/PELVIS W/O CON 06/20/2019 HISTORY: pna transaminitis TECHNIQUE: This exam was performed using automated exposure control, adjustment of mA or kV according to patient size, and/or use of iterative reconstruction technique. COMMENT: There is a left pleural effusion. There is atelectasis versus pneumonia in the left lower lobe. There is a smaller effusion on the right accompanied by mild compressive atelectasis. There is patchy air trapping and coarse opacity is present in the right upper lobe consistent with bronchopneumonia. There is a large hiatal hernia. There is extensive coronary calcification. There is a right paratracheal node measuring almost 15 mm in diameter. There are degenerative changes in the thoracic spine. There is an apparent rugger [place] spine, which may indicate secondary hyperparathyroidism. ABDOMEN: The spleen and adrenal glands are not enlarged. There is a cyst in the upper pole of the left kidney measuring almost 3 cm in diameter. There is no evidence of hydronephrosis or stones. There is considerable beam hardening and motion artifact artifact from the patient's arms. There are no gross hepatic abnormalities. There has been cholecystectomy. There is stool throughout much of the colon. The aorta is not distended. Pelvis: There is retained solid stool in the rectum. There is a Watson catheter in the bladder. There is diverticulosis in the sigmoid colon without evidence of active diverticulitis. There are patchy sclerotic areas within the spine which is possibly due to secondary hyperparathyroidism. There is scoliosis of the lumbar spine with convexity to the right. IMPRESSION: 1. Bilateral pleural effusions more so on the left than the right with basilar atelectasis and bronchopneumonia. 2. Constipation. Other nonacute findings as described above. Electronically signed by uSnny Deras 06/20/2019 8:42 PM
[2019-06-20] MEDS ORDERED: ANTIVERT PO SCH (21:00)
[2019-06-20] MEDS ORDERED: MAXIPIME 1 GM in NS 50 ML IV SCH (23:00)
[2019-06-21 01:20] VITALS: BP 98/85
[2019-06-21 02:39] LABS: CK-MB 3.26 ng/mL (0.0-5.0)
[2019-06-21] MEDS: DUONEB (A & A) INH SCH (03:02)
[2019-06-21] MEDS ORDERED: SYNTHROID IV SCH (07:00)
[2019-06-21] MEDS ORDERED: SYNTHROID PO SCH (07:00)
[2019-06-21] MEDS ORDERED: TOPROL XL PO SCH (09:00)
--- NOTE | 2019-06-22 07:25 | DISCHARGE SUMMARY ---
ADMISSION DATE: 06/20/2019 DISCHARGE DATE: 06/21/2019 DISCHARGE DIAGNOSES: The patient unfortunately from the following diagnoses: 1. Acute liver failure. 2. Acute respiratory failure, hypoxemic and hypercarbic. 3. Metabolic encephalopathy. 4. Sepsis, likely secondary to urinary tract infection. 5. Left lower lobe pneumonia. 6. Coagulopathy secondary to liver failure. 7. New onset atrial fibrillation with rapid ventricular rate. 8. Hyperkalemia. HOSPITAL COURSE: This was a patient who was sent from shelter because she was found altered. Here upon ER evaluation, we found out that this patient was in acute liver failure with very elevated transaminase and elevated INR. We also found her in atrial fibrillation, so she was critically ill. We informed the family about the bad prognosis for this patient. We decided to admit this patient to the intensive care unit. Unfortunately, she started becoming hypoglycemic and blood pressure continued to decrease. We were cautious because of CHF. Unfortunately, this patient continued to get worse with heart rate that was actually decreasing at the time. The family was at bedside and they said that they do not want to have any drastic measures taken, so we allowed this patient to pass naturally. She unfortunately at 3:15 on 06/21/2019. cc: Truman Butts MD
[2019-06-23] MEDS ORDERED: VANCOMYCIN 1.4 GM in NS 250 ML IV SCH (13:00)
== END 2019-06-21 03:15 | disposition expired | DRG 871 ==
LOC: SUPCPDRO → ED 09:22 → EDIPHOLD 13:10 → ED 06-21 05:09
PROVIDERS: ADMIT Internal Medicine; ATTEND Internal Medicine